=== PATIENT | male | born 1970 | race Caucasian/White ===

== ENCOUNTER 2016-07-09 10:01 | Emergency (ER) | payer SELFPAY ==
[~2016-07-09] VITALS: Ht 185.4 cm; Wt 130.0 kg
[2016-07-09] VITALS (7 sets, daily range): BP systolic 138–207; BP diastolic 91–134; PULSE 60–77; RESP 15–20; TEMP 98–98.8; O2SAT 98–100
[~2016-07-09 10:01] MED LIST: PRED20 PO; SULF-154 PO; Z.0.NO CURRENT MEDS
[2016-07-09] MEDS ORDERED: cloNIDine HCL 0.2 MG TAB PO ONE (10:30)
[2016-07-09] MEDS ORDERED: AMOX500T PO (10:31)
--- NOTE | 2016-07-09 10:33 | PD ---
HPI Chief Complaint: Headache Time Seen by Provider: 10:16 Travel History International Travel<30 days: No Contact w/Intl Traveler<30days: No Traveled to known affect area: No History of Present Illness HPI This patient complains of headache. Duration one week. Located in the posterior region. No thunderclap onset or injury or fever. Patient never goes to a doctor so does not have any diagnosed medical problems. On multiple checks his blood pressure is 200/130. Symptoms moderately severe. No alleviating factors. He has some generalized malaise. PFSH Past Medical History Diminished Hearing: No Inguinal Hernia: Yes Insomnia: Yes Kidney Stones: Yes Influenza Vaccination: No Past Surgical History Oral Surgery: Yes (two teeth were pooled on 07/08/2016) Other Surgery: Yes (INGUINAL HERNIA REPAIR 7 YRS AGO.) Social History Alcohol Use: No Tobacco Use: No Substance Use: Yes ([employer] ) Allergies-Medications (Allergen,Severity, Reaction): Coded Allergies: No Known Allergies (Verified , 08/17/09) Reported Meds & Prescriptions Reported Meds & Active Scripts Active Reported Amoxicillin 500 Mg Tab 500 Mg PO QID Review of Systems General / Constitutional: No: Fever Eyes: No: Visual changes HENT: Positive: Headaches Cardiovascular: No: Chest Pain or Discomfort Respiratory: No: Shortness of Breath Gastrointestinal: No: Abdominal Pain Genitourinary: No: Dysuria Musculoskeletal: No: Pain Skin: No Rash Neurologic: Positive: Headache, No: Weakness Psychiatric: No: Depression Endocrine: No: Polydipsia Hematologic/Lymphatic: No: Easy Bruising Physical Exam Narrative GENERAL: Well-nourished, well-developed patient in no apparent distress. SKIN: Focused skin assessment reveals no rash and nodules. Skin is Warm and dry. HEAD: Atraumatic. Normocephalic. EYES: Pupils equal and round. No scleral icterus. No injection or drainage. ENT: No nasal bleeding or discharge. Mucous membranes pink and moist. NECK: Trachea midline. No JVD. No meningeal signs CARDIOVASCULAR: Regular rate and rhythm. No murmur appreciated. RESPIRATORY: No accessory muscle use. Clear to auscultation. Breath sounds equal bilaterally. GASTROINTESTINAL: Abdomen soft, non-tender, nondistended. Hepatic and splenic margins not palpable. MUSCULOSKELETAL: No obvious deformities. No clubbing. No cyanosis. No edema. NEUROLOGICAL: Awake and alert. No obvious cranial nerve deficits. Motor grossly within normal limits. Normal speech. PSYCHIATRIC: Appropriate mood and affect; insight and judgment normal. Data Data Last Documented VS Vital Signs Date Time Temp Pulse Resp B/P Pulse Ox O2 Delivery O2 Flow Rate FiO2 07/09/16 11:56 67 20 162/101 100 Room Air 07/09/16 10:20 98.8 Orders Clonidine (Catapres) (07/09/16 10:30) Iv Access Insert/Monitor (07/09/16 10:24) Ct Brain W/O Iv Contrast(Rout) (07/09/16 ) Complete Blood Count With Diff (07/09/16 10:24) Basic Metabolic Panel (Bmp) (07/09/16 10:24) Nifedipine (Procardia) (07/09/16 11:30) Labs Laboratory Tests Test 07/09/16 10:25 White Blood Count 8.9 TH/MM3 Red Blood Count 5.09 MIL/MM3 Hemoglobin 15.3 GM/DL Hematocrit 45.0 % Mean Corpuscular Volume 88.4 FL Mean Corpuscular Hemoglobin 30.0 PG Mean Corpuscular Hemoglobin 34.0 % Concent Red Cell Distribution Width 13.0 % Platelet Count 229 TH/MM3 Mean Platelet Volume 9.1 FL Neutrophils (%) (Auto) 67.5 % Lymphocytes (%) (Auto) 22.7 % Monocytes (%) (Auto) 8.2 % Eosinophils (%) (Auto) 1.2 % Basophils (%) (Auto) 0.4 % Neutrophils # (Auto) 6.0 TH/MM3 Lymphocytes # (Auto) 2.0 TH/MM3 Monocytes # (Auto) 0.7 TH/MM3 Eosinophils # (Auto) 0.1 TH/MM3 Basophils # (Auto) 0.0 TH/MM3 CBC Comment DIFF FINAL Differential Comment Sodium Level 141 MEQ/L Potassium Level 4.6 MEQ/L Chloride Level 103 MEQ/L Carbon Dioxide Level 32.3 MEQ/L Anion Gap 6 MEQ/L Blood Urea Nitrogen 12 MG/DL Creatinine 0.92 MG/DL Estimat Glomerular Filtration 89 ML/MIN Rate Random Glucose 97 MG/DL Calcium Level 9.4 MG/DL MDM Medical Decision Making Medical Screen Exam Complete: Yes Emergency Medical Condition: Yes Medical Record Reviewed: Yes Differential Diagnosis Differential diagnosis includes migraine, tension headache, cluster headache, meningitis. Narrative Course I have reviewed the patient's electronic medical record. IV placed CBC is normal Metabolic profile is normal Brain CT is normal I gave him a dose of clonidine for accelerated hypertension He is neurologically intact No meningeal signs Presentation not consistent with subarachnoid hemorrhage or meningitis Repeat blood pressure is improved a bit but still very elevated. I gave her dose of Procardia An hour later it's now in the normal range He feels fine and his headache is gone away I wrote him low-dose lisinopril to start taking while he searches for primary care follow-up Is to avoid nicotine Diagnosis Primary Impression: Headache Qualified Code: R51 - Acute nonintractable headache, unspecified headache type Additional Impression: Accelerated hypertension Additional Instructions: Check and record blood pressure daily The patient was advised to follow up with their physician and return if they worsen. Avoid nicotine Med/Other Pt SpecificInfo: Prescription(s) given Scripts Lisinopril 10 Mg Tab10 Mg PO DAILY #30 TAB Ref 0 Prov:Shashi Ontiveros MD 07/09/16 Disposition: 01 DISCHARGE HOME Condition: Stable Shashi Ontiveros MD Jul 09, 2016 10:33
[2016-07-09 10:50] LABS: BASOPHIL % 0.4 % (0.0-2.0); EOSINOPHIL # 0.1 TH/MM3 (0-0.4); EOSINOPHIL % 1.2 % (0.0-4.0); HEMO FLAGS DIFF FINAL; LYMPH % 22.7 % (9.0-44.0); MEAN CELL VOLUME 88.4 FL (80.0-100.0); MONO % 8.2 % (0.0-8.0); NEUT % 67.5 % (16.0-70.0); PLATELET COUNT 229 TH/MM3 (150-450); RED BLOOD COUNT 5.09 MIL/MM3 (4.50-5.90); WHITE BLOOD COUNT 8.9 TH/MM3 (4.0-11.0)
[2016-07-09 11:06] LABS: BICARBONATE 32.3 MEQ/L (21.0-32.0); POTASSIUM 4.6 MEQ/L (3.5-5.1)
--- NOTE | 2016-07-09 11:23 | RADRPT ---
EXAM DATE/TIME: 07/09/2016 10:45 [facility] COMPARISON: No previous studies available for comparison. INDICATIONS : head and neck pain for 1 week. RADIATION DOSE: 35.14 CTDIvol (mGy) MEDICAL HISTORY : Hernia. SURGICAL HISTORY : Tooth extraction yesterday. ENCOUNTER: Initial ACUITY: 1 week PAIN SCALE: 3/10 LOCATION: TECHNIQUE: Multiple contiguous axial images were obtained of the head. Using automated exposure control and adj ustment of the mA and/or kV according to patient size, radiation dose was kept as low as reasonably a chievable to obtain optimal diagnostic quality images. FINDINGS: CEREBRUM: The ventricles are normal for age. No evidence of midline shift, mass lesion, hemorrhage or acute in farction. No extra-axial fluid collections are seen. POSTERIOR FOSSA: The cerebellum and brainstem are intact. The 4th ventricle is midline. The cerebellopontine angle i s unremarkable. EXTRACRANIAL: The visualized portion of the orbits is intact. SKULL: The calvaria is intact. No evidence of skull fracture. CONCLUSION: No acute intracranial findings. Fernando Warren MD on July 09, 2016 at 11:18 Board Certified Radiologist. This report was verified electronically.
[2016-07-09] MEDS ORDERED: NIFEdipine 10 MG CAP PO ONE (11:30)
[2016-07-09] MEDS ORDERED: LISI10TA3 PO (12:38)
== END 2016-07-09 13:28 | disposition home or self-care (01) ==
LOC: NEPC 10:01
DX: R51 Headache (principal); I10 Essential (primary) hypertension
CPT/HCPCS: 70450; 80048; 85025; 99284

== ENCOUNTER 2017-01-09 10:57 | Emergency (ER) | payer SELFPAY ==
[~2017-01-09] VITALS: Ht 185.4 cm; Wt 60.0 kg
[~2017-01-09 10:57] MED LIST changes: +AMOX500T PO; +LISI10TA3 PO; -PRED20 PO; -SULF-154 PO; -Z.0.NO CURRENT MEDS
[2017-01-09 10:58] VITALS: BP 176/107; PULSE 67; RESP 18; TEMP 98; O2SAT 99
[2017-01-09 11:14] VITALS: BP 159/115
[2017-01-09] MEDS ORDERED: LISI10TA3 PO (11:29)
[2017-01-09] MEDS ORDERED: BUTA1CAP PO (11:29)
[2017-01-09] MEDS ORDERED: ACETAMIN 325 MG/BUTALBITAL 50 MG/CAFFEINE 40 MG TAB PO ONE (11:30)
[2017-01-09] MEDS ORDERED: LISINOPRIL 10 MG TAB PO ONE (11:30)
--- NOTE | 2017-01-09 11:30 | PD ---
HPI Chief Complaint: Hypertension Time Seen by Provider: 11:11 Travel History International Travel<30 days: No Contact w/Intl Traveler<30days: No Traveled to known affect area: No History of Present Illness HPI 46-year-old male complains of headache, left arm pain, other blood pressure. Patient states that the symptoms started this morning. Patient has history hypertension. Patient states that he was seen in emergency room 6 months ago with hypertension and headache. CT scan of the brain was normal. Blood tests were normal. Patient was given prescription for lisinopril 10 mg daily. Patient states that he has not seen any physician since then. Patient ran out of medication several months ago. Patient states that headache is intermittent aching headache diffuse over the head. Patient states that he has mild photophobia with the headache. Patient complain of nausea with the headache. Patient states that he has muscle spasm to the neck area with pain radiation down to left arm.. Patient denies any fever chills. Patient denies any chest pain or shortness of breath. Patient denies abdominal pain. Patient denies any focal weakness or numbness of extremity. Patient denies history of CAD. Patient denies history of diabetes or hyperlipidemia. Patient is a smoker. PFSH Past Medical History Cardiovascular Problems: Yes Diminished Hearing: No Inguinal Hernia: Yes Insomnia: Yes Kidney Stones: Yes Past Surgical History Oral Surgery: Yes (two teeth were pooled on 07/08/2016) Other Surgery: Yes (INGUINAL HERNIA REPAIR 7 YRS AGO.) Social History Alcohol Use: Yes Tobacco Use: Yes Substance Use: Yes ([facility] ) Allergies-Medications (Allergen,Severity, Reaction): Coded Allergies: No Known Allergies (Verified Adverse Reaction, Unknown, 01/09/17) Reported Meds & Prescriptions Reported Meds & Active Scripts Active Lisinopril 10 Mg Tab 10 Mg PO DAILY Review of Systems General / Constitutional: No: Fever Eyes: No: Visual changes HENT: Positive: Headaches Cardiovascular: No: Chest Pain or Discomfort Respiratory: No: Shortness of Breath Gastrointestinal: No: Abdominal Pain Genitourinary: No: Dysuria Musculoskeletal: Positive: Pain Skin: No Rash Neurologic: No: Weakness Psychiatric: No: Depression Endocrine: No: Polydipsia Hematologic/Lymphatic: No: Easy Bruising Physical Exam Narrative GENERAL: Well-nourished, well-developed patient. SKIN: Focused skin assessment warm/dry. HEAD: Normocephalic. EYES: No scleral icterus. No injection or drainage. Pupils 4 mm equal reactive. NECK: Supple, trachea midline. No JVD or lymphadenopathy. Mild tenderness on palpation paraspinal areas cervical spine. No midline tenderness. No meningismus. CARDIOVASCULAR: Regular rate and rhythm without murmurs, gallops, or rubs. RESPIRATORY: Breath sounds equal bilaterally. No accessory muscle use. GASTROINTESTINAL: Abdomen soft, non-tender, nondistended. MUSCULOSKELETAL: No cyanosis, or edema. BACK: Nontender without obvious deformity. No CVA tenderness. Neurologic exam normal. Data Data Last Documented VS Vital Signs Date Time Temp Pulse Resp B/P (MAP) Pulse Ox O2 Delivery O2 Flow Rate FiO2 01/09/17 11:14 159/115 (130) 01/09/17 10:58 98.0 67 18 99 Orders Orders [id number] 325-50-40 Mg (Fioricet 3 (01/09/17 11:30) Lisinopril (Prinivil) (01/09/17 11:30) [facility] Medical Decision Making Medical Screen Exam Complete: Yes Emergency Medical Condition: Yes Differential Diagnosis Differential diagnosis including migraine headache, tension headache, cluster headache, uncontrolled hypertension. Narrative Course 46-year-old male with headache and other blood pressure. History of recurrent headache and hypertension. Patient ran out of blood pressure medication recently. Lisinopril 10 mg by mouth given. Fioricet one tablet by mouth given. Diagnosis Primary Impression: Cephalgia Qualified Codes: R51 - Headache Additional Impression: Uncontrolled hypertension Patient Instructions: General Instructions Additional Instructions: Take medications as directed. Follow-up with personal physician. Return if worse. Med/Other Pt SpecificInfo: Prescription(s) given Scripts [id number] (Fioricet) 50-300-40 Mg Cap 1-2 CAP PO Q6H Y for HEADACHE, #30 CAP 0 Refills Prov: Gurvinder Block MD 01/09/17 Lisinopril (Lisinopril) 10 Mg Tab 10 MG PO DAILY, #30 TAB 3 Refills Prov: Gurvinder Block MD 01/09/17 Disposition: 01 DISCHARGE HOME Condition: Stable Gurvinder Block MD Jan 09, 2017 11:30
== END 2017-01-09 11:58 | disposition home or self-care (01) ==
LOC: NEPD 10:57
DX: R51 Headache (principal); I10 Essential (primary) hypertension; G47.00 Insomnia, unspecified; Z79.899 Other long term (current) drug therapy; Z72.0 Tobacco use; Z87.442 Personal history of urinary calculi
CPT/HCPCS: 99284